=== PATIENT | male | born 1990 | race African-American/Black ===

== ENCOUNTER 2022-10-13 08:00 | Emergency (ER) | payer MEDICAID, SELFPAY ==
--- NOTE | ~2022-10-13 | XR_ITS ---
Clinical Indication: Chest pain PA and lateral views of the chest: Comparison: None Findings: The lungs are clear, without evidence of focal consolidation or pleural effusion. Cardiome diastinal silhouette is within normal limits. Bones and soft tissues are unremarkable. Impression: Normal chest. Reviewed, dictated and finalized at location . Impression: Normal chest.
--- NOTE | 2022-10-13 08:01 | ECG_ITS ---
Measurements Intervals [place] Rate: 75 P: 72 OK: 161 QRS: 69 QRSD: 106 T: 38 QT: 360 QTc: 402 Interpretive Statements SINUS RHYTHM NORMAL ECG NO PREVIOUS ECG AVAILABLE FOR COMPARISON Electronically Signed On 10-13-2022 8:11:15 CDT by Lucio Rodney D.O.
[2022-10-13 08:07] VITALS: BP 140/80; PULSE 72; RESP 16; TEMP 36.4; O2SAT 100
[2022-10-13] MEDS: ASPIRIN 81 MG CHEWABLE TABLET 324 MG PO (08:10)
[2022-10-13 08:32] LABS: Basophils Percent Auto 0.5 % (0.2-1.2); Eosinophils Absolute Auto 0.2 K/mm3 (0-0.3); Eosinophils Percent Auto 3.1 % (0-4.4); Hematocrit 42.5 % (42.0-52.0); Hemoglobin 14.2 g/dL (14.0-18.0); Immature Granulocyte Absolute 0.01 K/mm3 (0.00-0.031); Immature Granulocyte Percent A 0.2 % (0-0.5); Lymphocytes Absolute Auto 1.79 K/mm3 (0.9-3.2); Lymphocytes Percent Auto 30.4 % (18.3-44.2); Mean Corpuscular HGB Conc 33.4 g/dl (32-36); Mean Corpuscular Hemoglobin 29.2 pg (26-34); Mean Corpuscular Volume 87.4 fl (80-100); Mean Platelet Volume 8.5 fl (7.4-10.4); Monocytes Absolute Auto 0.6 K/mm3 (0.1-0.6); Monocytes Percent Auto 9.7 % (2.6-8.5); Neutrophils Absolute Auto 3.3 K/mm3 (1.3-6.7); Neutrophils Percent Auto 56.1 % (45.5-73.1); Platelet Count Result 318 k/mm3 (150-375); Red Blood Count 4.86 M/mm3 (4.6-6.20); Red Cell Distribution Width 14.2 % (11.5-14.5); White Blood Count 5.9 K/mm3 (4.5-10.0)
[2022-10-13 08:45] LABS: Prothrombin Time 12.9 Seconds (11.1-14.7)
[2022-10-13 08:46] LABS: Partial Thromboplastin Time 31.7 SECONDS (22.3-36.8)
[2022-10-13 08:47] LABS: Alanine Aminotransferase 13 U/L (6-50); Albumin Level 4.5 g/dL (3.5-5.1); Alkaline Phosphatase 67 U/L (38-126); Anion Gap 9 mmol/L (8-16); Aspartate Amino Transferase 19 U/L (17-59); Bilirubin,Total 0.5 mg/dL (0.2-1.3); Blood Urea Nitrogen 11 mg/dL (9-20); Calcium 9.5 mg/dL (8.4-10.2); Carbon Dioxide 31 mmol/L (22-30); Chloride 99 mmol/L (98-107); Estimated Glomerular Filt Rate > 60; Glucose 87 mg/dL (65-110); Lipase 34 U/L (23-300); Sodium 139 mmol/L (137-145)
[2022-10-13 08:59] LABS: Troponin I < 0.012 ng/mL (0.000-0.034)
[2022-10-13 09:00] VITALS: BP 129/94; PULSE 79; RESP 16; O2SAT 100
--- NOTE | 2022-10-13 09:26 | ED.CHESTPAIN ---
HPI - Chest Pain General Chief Complaint: Chest Pain Stated Complaint: chest pain x 1 week Time Seen by Provider: 10/13/22 08:55 Source: patient Mode of arrival: ambulatory Limitations: no limitations History of Present Illness HPI narrative: Patient is a 32-year-old male who presents the ED with report of chest pain. Patient reports having pain in his left-sided and midsternal chest radiating into his back and left shoulder region for the last 1 week. He states the pain has occurred every day, is worse with movement, coughing, deep breaths, stretching. Patient took aspirin a couple days, but denied relief of this and has not tried anything further. Patient denies any recent strenuous activity, heavy lifting, injury. Patient denies any difficulty breathing, shortness of breath, recent cough or cold symptoms, fevers, abdominal pain, nausea, vomiting. Patient reports a history of what sounds like SVT in which his heart was beating too fast and he required a medication to reset his heart. 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 Denies previous history of coronary disease, hypertension, hyperlipidemia. Related Data Home Medications Medication Instructions Recorded Confirmed No Home Medications 10/13/22 10/13/22 Allergies Allergy/AdvReac Type Severity Reaction Status Date / Time No Known Allergies Allergy Verified 10/13/22 09:12 Review of Systems Review of Systems: CONSTITUTIONAL: Denies fever, chills, or sweats. ENT: Denies rhinorrhea, congestion, sore throat. CARDIOVASCULAR: See HPI. RESPIRATORY: See HPI. GASTROINTESTINAL: Denies abdominal pain, nausea, vomiting, or diarrhea. GENITOURINARY: Denies dysuria or hematuria. MUSCULOSKELETAL: See HPI. NEUROLOGIC: Denies headache, numbness, or weakness. All systems reviewed & are unremarkable except as noted in HPI and below PMFSH Past Medical History Medical History (Updated 10/13/22 @ 10:10 by Lashell Porter PA-C) History of palpitations Surgical History Surgical History (Updated 10/13/22 @ 10:05 by Lashell Porter PA-C) No pertinent past surgical history Social History Social History (Updated 10/13/22 @ 10:05 by Lashell Porter PA-C) Smoking status: Never smoker Exam Narrative: GENERAL: Well appearing, well-nourished, non-toxic, in no acute distress. HEAD: Normocephalic, atraumatic. NECK: Supple. No adenopathy, no masses. RESPIRATORY: Airway patent, respirations nonlabored. Clear to auscultation bilaterally, no rales, rhonchi, wheezing. No focal lung sounds. CARDIOVASCULAR: Regular rate and rhythm without murmurs, rubs, or gallops. Radial pulses 2+ and equal bilaterally. ABDOMINAL: Soft, nontender, nondistended, no hepatosplenomegaly. Normoactive BS. MUSCULOSKELETAL: Moves all extremities. Strength/ROM intact without gross deformities. No edema. No calf tenderness. Midsternal and left-sided anterior chest wall tenderness to palpation. SKIN: Warm, dry, normal color. No rashes. NEURO: A&O X3. Speech clear. Cranial nerves II-XII grossly intact. Steady gait. No ataxic movements. PSYCHIATRIC: Appropriate mood and affect. Normal interaction. Course Vital Signs Vital signs: Vital Signs Temperature 97.6 F 10/13/22 08:07 Pulse Rate 72 10/13/22 08:07 Respiratory Rate 16 10/13/22 08:07 Blood Pressure 140/80 10/13/22 08:07 Pulse Oximetry 100 10/13/22 08:07 Oxygen Delivery Room Air 10/13/22 08:07 Temperature 97.6 F 10/13/22 08:07 Pulse Rate 73 10/13/22 11:49 Respiratory Rate 16 10/13/22 11:49 Blood Pressure 142/86 H 10/13/22 11:49 Pulse Oximetry 98 10/13/22 11:49 Oxygen Delivery Room Air 10/13/22 08:07 MDM - Chest Pain MDM Narrative Medical decision making narrative: Patient presented to ED with week-long Hx of midsternal and left-sided chest pain, worse with movement. Vital signs stable upon arrival. Patient's EKGs and labs are without significant high risk changes.
[2022-10-13 10:00] VITALS: BP 120/78; PULSE 78; RESP 18; O2SAT 100
[2022-10-13 11:00] VITALS: BP 107/74; PULSE 76; RESP 16; O2SAT 100
[2022-10-13 11:48] LABS: Troponin I < 0.012 ng/mL (0.000-0.034)
[2022-10-13 11:49] VITALS: BP 142/86; PULSE 73; RESP 16; O2SAT 98
== END 2022-10-13 11:56 | disposition home or self-care (01) ==
PROVIDERS: Emergency Medicine; Emergency Provider Physician Assistant
DX: R07.89 Other chest pain (principal)
CPT/HCPCS: 36415; 71046; 80053; 83690; 84484; 85025; 85610; 85730; 93005; 96365; 99284; A9270; J0131